=== PATIENT | male | born 1980 | race Hispanic/Latino ===

== ENCOUNTER 2020-01-29 11:14 | Emergency (ER) | payer OTHER ==
[~2020-01-29] VITALS: Ht 177.8 cm; Wt 108.9 kg
--- OUTSIDE RECORDS SUMMARY | 2020-01-29 11:35 | XMS REPORT | Continuity of Care Document ---
Author Author [facility] Organization [facility] Address [address] [place] [address] Dr. Wallace [address] [place] [phone] Phone Unavailable Care Team Providers [facility] [employer] Name Role Phone Omar RUVALCABA Attphys Unavailable Problems This patient has no known problems. Allergies, Adverse Reactions, Alerts This patient has no known allergies or adverse reactions. Medications This patient has no known medications. Procedures This patient has no known procedures. Results Test Description Test Time Test Comments Results Result Comments Source CT ABDOMEN/PELVIS WO [place] [address] Patient Name: MARIA LUISA ONOFRE MR #: [id number] : 1980 Age/Sex: 36/M Req #: [id number] Adm Physician: Ordered by: DINORA RUVALCABA MD Report #: [id number] Location: ER Room/Bed: Procedure: [id number] CT/CT ABDOMEN/PELVIS WO Exam Date: Exam Time: REPORT STATUS: Signed EXAM: CT ABDOMEN/PELVIS WO DATE: 11/09/2016 3:12 AM INDICATION: Left flank pain, stone protocol COMPARISON: 01/03/2010 TECHNIQUE: The abdomen and pelvis were scanned using a multidetector helical scanner. Coronal and sagittal reformations were obtained. Routine stone protocol performed. IV Contrast: None FINDINGS: Lack of IV contrast decreases sensitivity in evaluating abdominal and pelvic organs. LOWER THORAX: Mild bibasilar atelectasis. LIVER/BILIARY: No masses. No ductal dilatation. GALLBLADDER/SPLEEN/PANCREAS: Unremarkable ADRENALS: No nodules KIDNEYS: There is a 3 to 4 mm distal left ureteral calculus (about 2 cm above the left UVJ) resulting in mild upstream hydroureteronephrosis and perinephric inflammatory changes. Probable punctate nonobstructing right superior renal calculus. GI TRACT: No distention, wall thickening or evidence of obstruction. Diverticulosis. Normal appendix VESSELS: Normal caliber without significant atherosclerotic calcification. PERITONEUM/RETROPERITONEUM: No free air or fluid LYMPH NODES: No lymphadenopathy REPRODUCTIVE ORGANS/BLADDER: Unremarkable BONES: No suspicious bone lesions. IMPRESSION: 3 to 4 mm distal left ureteral calculus resulting in mild hydroureteronephrosis and perinephric inflammatory changes. Signed by: Dr Zackery Keita MD on 11/09/2016 4:34 AM Dictated By: ZACKERY KEITA MD [id number] Transcribed By: NAIMA on 11/09/16433 COPY TO: DINORA RUVALCABA MD
[2020-01-29] MEDS: SODIUM CHLORIDE 0.9% 1000ML 1,000 ML IV STA ×2 (11:37→13:09)
[2020-01-29 11:39] LABS: BASOPHILS # (AUTO) 0.1 (0.0-0.1); BASOPHILS % 0.7 % (0.0-1.0); EOSINOPHILS # (AUTO) 0.1 (0.0-0.4); EOSINOPHILS % 0.6 % (0.0-6.0); HEMATOCRIT 49.2 % (38.2-49.6); HEMOGLOBIN 16.2 g/dL (14.0-18.0); LYMPHOCYTES # (AUTO) 3.1 (1.0-3.2); LYMPHOCYTES % 32.2 % (18.0-39.1); MEAN CORPUSCULAR HEMOGLOBIN 28.7 pg (28-32); MEAN CORPUSCULAR HGB CONC 32.9 g/dL (31-35); MEAN CORPUSCULAR VOLUME 87.1 fL (81-99); MONOCYTES # (AUTO) 0.5 (0.2-0.8); MONOCYTES % 5.3 % (4.4-11.3); NEUTROPHILS # (AUTO) 5.9 (2.1-6.9); NEUTROPHILS % 60.9 % (38.7-80.0); PLATELET COUNT 320 x10e3/uL (140-360); RED BLOOD COUNT 5.65 x10e6/uL (4.3-5.7); RED CELL DISTRIBUTION WIDTH 13.1 % (11.7-14.4)
[2020-01-29] MEDS: KETOROLAC TROMETHAMINE 30 MG/ML VIAL IV STA (11:43)
[2020-01-29] MEDS: ONDANSETRON HCL INJ 2MG/ML 2ML 2 MG/ML VIAL IV STA ×2 (11:44→13:09)
[2020-01-29 11:47] LABS: CLARITY,URINE SL CLOUDY (CLEAR); COLOR,URINE YELLOW (YELLOW)
[2020-01-29 11:48] LABS: BILIRUBIN,URINE NEGATIVE (NEGATIVE); KETONES,URINE NEGATIVE (NEGATIVE); LEUKOCYTE ESTERASE ,URINE NEGATIVE (NEGATIVE); NITRITE,URINE NEGATIVE (NEGATIVE); PROTEIN,URINE DIPSTICK NEGATIVE (NEGATIVE); URINE UROBILINOGEN 0.2 mg/dL (0.2 - 1)
[2020-01-29] MEDS ORDERED: KETOROLAC TROMETHAMINE 30 MG/ML VIAL ONE (11:50)
[2020-01-29] MEDS ORDERED: ONDANSETRON HCL INJ 2MG/ML 2ML 2 MG/ML VIAL ONE (11:51)
[2020-01-29 11:59] LABS: ALANINE AMINOTRANSFERASE 38 IU/L (0-55); ALBUMIN 4.5 g/dL (3.5-5.0); ALBUMIN/GLOBULIN RATIO 1.2 (0.8-2.0); ALKALINE PHOSPHATASE 116 IU/L (40-150); BLOOD UREA NITROGEN 16 mg/dL (7-26); BUN/CREATININE RATIO 13 (6-25); CALCIUM 9.4 mg/dL (8.4-10.2); CARBON DIOXIDE 26 mmol/L (22-29); CHLORIDE 104 mmol/L (98-107); EST GLOMERULAR FILTRATION RATE > 60 ML/MIN (60-); GLUCOSE 118 mg/dL (74-118); SODIUM 143 mmol/L (136-145)
--- NOTE | 2020-01-29 12:05 | Emergency Department Note ---
History of Present Illnes History of Present Illness Chief Complaint: Genitourinary History of Present Illness This is a 39 year old male arrives to the ED with several hours of right flank pain that feels like a prior kidney stone. Chief Complaint Comment PATIENT IN FROM HOME WITH COMPLAINT SOF RIGHT FLANK PAIN STARTING ABOUT 2 HOURS AGO. PATIENT DENIES NAUSEA, VOMITING, OR DIARRHEA. DENIES BURNING OR PAIN WITH URINATION. PATIENT STATES HISTORY OF KIDNEY STONES AND THIS FEELS THE SAME. RATES PAIN 10/10, ALERT AND ORIENTED, RESP EVEN AND NONLABORED, AMBULATORY WITHOUT ASSISTANCE Historian: Patient Arrival Mode: Car Onset (how long ago): hour(s) Radiation: Reports non-radiation Onset quality: sudden Duration (how long): hour(s) Timing of current episode: constant Progression: waxing and waning Chronicity: recurrent Past Medical/Family History Physician Review I have reviewed the patient's past medical and family history. Any updates have been documented here. Past Medical History Recent Fever: No Clinical Suspicion of Infectio: No New/Unexplained Change in Ment: No Past Medical History: None Other Medical History: KIDNEY STONES Past Surgical History: T&A Other Surgery: KNEE SURGERY Social History Physically hurt or threatened: No Other Last Tetanus: UNK Review of Systems Review of Systems Constitutional: Reports no symptoms EENTM: Reports no symptoms Cardiovascular: Reports no symptoms Respiratory: Reports no symptoms Gastrointestinal: Reports no symptoms Genitourinary: Reports as per HPI, Reports pain; Denies frequency, Denies hematuria Musculoskeletal: Reports no symptoms Integumentary: Reports no symptoms Neurological: Reports no symptoms Psychological: Reports no symptoms Endocrine: Reports no symptoms Hematological/Lymphatic: Reports no symptoms Physical Exam Related Data Allergies: Coded Allergies: amoxicillin (Verified Allergy, Unknown, 01/29/20) Triage Vital Signs Vital Signs Date Time Temp Pulse Resp B/P (MAP) Pulse Ox O2 Delivery O2 Flow Rate FiO2 01/29/20 11:18 97.5 67 20 163/98 100 Room Air Vital signs reviewed: Yes Physical Exam CONSTITUTIONAL Constitutional: Present well-developed, Present well-nourished HENT HENT: Present normocephalic, Present atraumatic, Present oropharynx clear/moist, Present nose normal HENT L/R: Present left ext ear normal, Present right ext ear normal EYES Eyes: Reports PERRL, Reports conjunctivae normal NECK Neck: Present ROM normal PULMONARY Pulmonary: Present effort normal, Present breath sounds normal CARDIOVASCULAR Cardiovascular: Present regular rhythm, Present heart sounds normal, Present capillary refill normal, Present normal rate GASTROINTESTINAL Abdominal: Present soft, Present bowel sounds normal, Present tender GENITOURINARY Genitourinary: Present exam deferred SKIN Skin: Present warm, Present dry MUSCULOSKELETAL Musculoskeletal: Present ROM normal NEUROLOGICAL Neurological: Present alert, Present oriented x 3, Present no gross motor or sensory deficits PSYCHOLOGICAL Psychological: Present mood/affect normal, Present judgement normal Results Laboratory Result Diagram: 01/29/20 1125 Laboratory Laboratory Tests Test 01/29/20 11:25 White Blood Count 9.70 x10e3/uL (4.8-10.8) Red Blood Count 5.65 x10e6/uL (4.3-5.7) Hemoglobin 16.2 g/dL (14.0-18.0) Hematocrit 49.2 % (38.2-49.6) Mean Corpuscular Volume 87.1 fL (81-99) Mean Corpuscular Hemoglobin 28.7 pg (28-32) Mean Corpuscular Hemoglobin Concent 32.9 g/dL (31-35) Red Cell Distribution Width 13.1 % (11.7-14.4) Platelet Count 320 x10e3/uL (140-360) Neutrophils (%) (Auto) 60.9 % (38.7-80.0) Lymphocytes (%) (Auto) 32.2 % (18.0-39.1) Monocytes (%) (Auto) 5.3 % (4.4-11.3) Eosinophils (%) (Auto) 0.6 % (0.0-6.0) Basophils (%) (Auto) 0.7 % (0.0-1.0) Neutrophils # (Auto) 5.9 (2.1-6.9) Lymphocytes # (Auto) 3.1 (1.0-3.2) Monocytes # (Auto) 0.5 (0.2-0.8) Eosinophils # (Auto) 0.1 (0.0-0.4) Basophils # (Auto) 0.1 (0.0-0.1) Absolute Immature Granulocyte (auto 0.03 x10e3/uL (0-0.1) Urine Color Yellow (YELLOW) Urine Clarity Sl cloudy (CLEAR) Urine pH 5.5 (5 - 7) Urine Specific Mears >=1.030 (1.010-1.025) Urine Protein Negative (NEGATIVE) Urine Glucose (UA) Negative (NEGATIVE) Urine Ketones Negative (NEGATIVE) Urine Blood Large (NEGATIVE) Urine Nitrite Negative (NEGATIVE) Urine Bilirubin Negative (NEGATIVE) Urine Urobilinogen 0.2 mg/dL (0.2 - 1) Urine Leukocyte Esterase Negative (NEGATIVE) Lab results reviewed: Yes Imaging Imaging results reviewed: Yes Assessment & Plan Medical Decision Making MDM Presentation most consistent with Renal Colic from a Non-infected Kidney Stone. Given History and Exam I have lower suspicion for atypical appendicitis, genital torsion, acute cholecystitis, AAA, Aortic Dissection, Serious Bacterial Illness or other emergent intraabdominal pathology. Workup: CBC, BMP, CT Abd/Pelvis noncontrast, UA, reassess Findings: Reassesment: Patient tolerating PO and pain controlled Disposition: Discharge. Strict return precautions for infected stone or PO intolerance discussed. Assessment & Plan Final Impression: (1) Ureterolithiasis Depart Disposition: HOME, SELF-CARE Last Vital Signs Date Time Temp Pulse Resp B/P (MAP) Pulse Ox O2 Delivery O2 Flow Rate FiO2 01/29/20 11:18 97.5 67 20 163/98 100 Room Air Home Meds Active Scripts Tramadol Hcl (ULTRAM) 50 Mg Tablet, 50 MG PO Q6HR PRN for MUSCLE SPASMS, #12 TAB Prov:VISHAL CARRANZA, 01/29/20 Ketorolac Tromethamine (TORADOL) 10 Mg Tablet, 10 MG PO Q8HR PRN for MUSCLE SPASMS, #12 Prov:VISHAL CARRANZA DO 01/29/20 Tamsulosin Hcl* (FLOMAX*) 0.4 Mg Cap, 0.4 MG PO DAILY, #10 CAP 0 Refills Prov:VISHAL CARRANZA, 01/29/20 Medications in the ED Sodium Chloride 1,000 ml @ 0 mls/hr Q0M STAT IV Last administered on 01/29/20at 11:37; Admin Dose 1,000 MLS/HR; Start 01/29/20 at 11:27; Stop 01/29/20 at 11:29; Status DC Ketorolac Tromethamine 30 mg ONCE STAT IV Last administered on 01/29/20at 11:43; Admin Dose 30 MG; Start 01/29/20 at 11:27; Stop 01/29/20 at 11:42; Status DC Ondansetron HCl 4 mg NOW STAT IV Last administered on 01/29/20at 11:44; Admin Dose 4 MG; Start 01/29/20 at 11:27; Stop 01/29/20 at 11:42; Status DC Ketorolac Tromethamine 30 mg STK-MED ONCE .ROUTE ; Start 01/29/20 at 11:50; Stop 01/29/20 at 11:43; Status DC Ondansetron HCl 4 mg STK-MED ONCE .ROUTE ; Start 01/29/20 at 11:51; Stop 01/29/20 at 11:44; Status DC VISHAL CARRANZA DO Jan 29, 2020 12:05
[2020-01-29 12:22] LABS: BACTERIA,URINE RARE /HPF; EPITHELIAL CELLS,URINE FEW /LPF; RBC,URINE 21-50 /HPF (0-5)
--- NOTE | 2020-01-29 12:45 | Diagnostic Imaging Report ---
EXAM: CT Abdomen and Pelvis WITHOUT contrast INDICATION: ^Y ^RT FLANK PAIN ^[id number] ^[id number] COMPARISON: CT abdomen and pelvis on 01/03/2010. TECHNIQUE: Abdomen and pelvis were scanned utilizing a multidetector helical scanner from the lung base to the pubic symphysis without administration of IV contrast. Absence of intravenous contrast decreases sensitivity for detection of focal lesions and vascular pathology. Coronal and sagittal reformations were obtained. Routine protocol was performed. IV CONTRAST: None ORAL CONTRAST: None COMPLICATIONS: None RADIATION DOSE: Total DLP: 847 mGy*cm Estimated effective dose: (DLP x 0.015 x size factor) mSv CTDIvol has been reviewed. It is below the limits set by the Radiation Protocol Committee (RPC). Dose modulation, iterative reconstruction, and/or weight based adjustment of the mA/kV was utilized to reduce the radiation dose to as low as reasonably achievable. FINDINGS: LINES and TUBES: None. LOWER THORAX: There is bibasilar atelectasis. HEPATOBILIARY: No focal hepatic lesions. No biliary ductal dilation. GALLBLADDER: No radio-opaque stones or sludge. No wall thickening. SPLEEN: No splenomegaly. PANCREAS: No focal masses or ductal dilatation. ADRENALS: No adrenal nodules KIDNEYS/URETERS: There is a 2 mm stone in the right ureterovesicular junction (series 3 image 176) with mild upstream hydroureteronephrosis. No large cystic or solid mass identified. The left kidney and ureter are normal. GI TRACT: There is diffuse diverticulosis coli. Additionally, there is mucosal thickening of the ascending colon. No significant peripheral fat stranding. Remainder of the large bowel has no evidence of thickening. No evidence of bowel obstruction. Appendix is normal. PELVIC ORGANS/BLADDER: Unremarkable. LYMPH NODES: No lymphadenopathy. VESSELS: Unremarkable. PERITONEUM / RETROPERITONEUM: No free air or fluid. BONES: There are degenerative changes in the spine. SOFT TISSUES: Unremarkable. IMPRESSION: 1. A 2 mm obstructive stone in the right ureterovesicular junction resulting in mild upstream hydroureteronephrosis (series 3 image 176). 2. Diverticulosis coli without evidence of active diverticulitis. However, there is mucosal thickening of the ascending colon which likely reflect sequela of chronic inflammation. Consider gastroenterology referral to determine need for colonoscopy to further evaluate the ascending colon. Signed by: Nila Solomon MD on 01/29/2020 12:42 PM
[2020-01-29] MEDS: MORPHINE SULFATE INJ 4 MG/ML INJ 1ML IV PRN (13:09)
[2020-01-29] MEDS ORDERED: KETOROLAC TROME10 MG PO (14:11)
[2020-01-29] MEDS ORDERED: ULTRAM50 MG PO (14:11)
[2020-01-29] MEDS ORDERED: FLOMAX0.4 MG PO (14:11)
[2020-01-29 14:45] VITALS: BP 131/87
== END 2020-01-29 14:50 | disposition home or self-care (01) ==
LOC: ER 11:33
DX: N13.2 Hydronephrosis with renal and ureteral calculous obstruction (principal); K57.90 Diverticulosis of intestine, part unspecified, without perforation or abscess without bleeding; M54.5 Low back pain
CPT/HCPCS: 36415; 74176; 80053; 81001; 85025; 99284; J1885; J2270; J2405; J7030